=== PATIENT | female | born 1965 | race Asian ===

== ENCOUNTER 2017-01-14 18:42 | Emergency (ER) | payer OTHER ==
[2017-01-14 20:26] LABS: microscopic required? NO
[2017-01-14 20:31] LABS: CALCIUM 8.8 mg/dL (8.5-10.1); CARBON DIOXIDE 27.8 mmol/L (21-32); CHLORIDE SERUM 105 mmol/L (98-107); CREATININE SERUM 0.7 mg/dL (0.6-1.0); GFR1 > 60 mL/min; GLUCOSE SERUM 106 mg/dL (74-106); SODIUM SERUM 141 mmol/L (136-145); urine erythrocyte NEGATIVE (NEGATIVE)
[2017-01-14 20:32] LABS: BASOPHIL % 0.1 % (0-2); PLATELET COUNT 229 x10^3mcL (130-400)
[2017-01-14 20:33] LABS: RED CELL DISTRIBUTION WIDTH 16.5 % (11.5-14.5)
[2017-01-14 20:43] LABS: ALKALINE PHOSPHATASE 93 U/L (46-116); ALT/SGPT 28 U/L (14-59); AST/SGOT 15 U/L (15-37); BILIRUBIN TOTAL 0.28 mg/dL (0.20-1.00); T4(THYROXINE) 6.4 ug/dL (4.7-13.3); TOTAL PROTEIN, SERUM 7.1 g/dL (6.4-8.2)
[2017-01-14 20:44] LABS: ALBUMIN 3.3 g/dL (3.4-5.0)
[2017-01-14 21:39] VITALS: BP 131/77
== END 2017-01-14 21:39 | disposition home or self-care (01) ==
LOC: ED 18:42
PROVIDERS: Emergency Medicine
DX: E03.9 Hypothyroidism, unspecified (principal); I10 Essential (primary) hypertension
CPT/HCPCS: 82962; Q0092